=== PATIENT | female | born 1960 | race Caucasian/White ===

== ENCOUNTER 2023-12-04 14:46 | Emergency (ER) | payer BC, SELFPAY ==
[2023-12-04 14:47] VITALS: BP 183/90
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
== END 2023-12-04 17:30 | disposition home or self-care (01) ==
LOC: EMR 14:46
PROVIDERS: EMERGENCY PHYSICIAN Emergency Medicine; FAMILY PHYSICIAN Internal Medicine
DX: S09.90XA Unspecified injury of head, initial encounter (principal); M25.562 Pain in left knee; M25.552 Pain in left hip; M79.642 Pain in left hand; V28.01XA Electric (assisted) bicycle driver injured in noncollision transport accident in nontraffic accident, initial encounter; K21.9 Gastro-esophageal reflux disease without esophagitis; R03.0 Elevated blood-pressure reading, without diagnosis of hypertension; M54.2 Cervicalgia
CPT/HCPCS: 99285; 70450; 72125; 73130; 73502; 73564

== ENCOUNTER 2024-07-20 18:17 | Emergency (ER) | payer BC, SELFPAY ==
[2024-07-20 18:22] VITALS: BP 189/94
--- NOTE | 2024-07-20 19:41 | ED.GENMED ---
History of Present Illness
General
Chief Complaint: Rabies
Source: patient
Exam Limitations: none
Time Seen by Provider: 07/20/24 18:28
Nursing documentation reviewed up to this point in time: agreed with
History of Present Illness
History of Present Illness:
Patient to ED for rabies booster. States her cat found a bat in the house. She is unsure if she was scratched by cat or bat. Scratch to left shinHas had full rabies series in the past. Last booster was 2016. Bat was released outside. Brought
self to ED for booster and requests rabies titer.
Past History
Past History
ED Past Medical History: None
ED Past Surgical History: None
Patient has exhibited threatening behavior?: No
Social History
Tobacco: Non-smoker
Personal:
Living: with family
Employment: Employed
Review of Systems
Review of Systems
Allergies reviewed?: Yes
All Other Systems: ROS reviewed and negative except as documented in HPI and ROS
Constitutional: Reports no symptoms
Musculoskeletal: Reports no symptoms
Skin: Reports other (scratch on left martinez)
Neurological: Reports no symptoms
Psychiatric: Reports no symptoms
Phy Exam
General Physical Exam
General Presentation: well appearing and no apparent distress
General age: appears stated age
General Skin: warm and dry
General Habitus: normal
General Mental: alert
Musculoskeletal Exam
Musculoskeletal Exam: full ROM and neuro vasc intact
Skin Exam
Skin Exam: normal color, warm/dry, no rash and other (3cm superficial scratch to right martinez. No rednss swelling or discharge.)
Psychiatric Exam
Psychiatric Exam: normal mood/affect
Course
Orders/Labs/Results
Orders:
Orders
07/20/24 18:40
Rabies Vaccine ([facility])/Pf [Rabavert Rabies Vacc W-Diluent] 2.5 unit IM .ONCE ONE
07/20/24 19:32
Rabies Antibody ([facility]) [S] Urgent
Vital Signs
Initial and Last Documented VS:
Initial Vital Signs
Temp Pulse Resp BP Pulse Ox
98.2 F 86 20 189/94 98
07/20/24 18:22 07/20/24 18:22 07/20/24 18:22 07/20/24 18:22 07/20/24 18:22
Last Documented Vital Signs
Temp Pulse Resp BP Pulse Ox
98.2 F 86 20 189/94 98
07/20/24 18:22 07/20/24 18:22 07/20/24 18:22 07/20/24 18:22 07/20/24 18:22
*Critical Care Note
Total Time (30-74mins, 75-104mins- exclusive of procedures): Not Applicable
Update Note
Update Note:
Patient to ED for rabies booster after receiving scratch to left martinez by bat vs her cat. Bat was released after capture. Patient has had full rabies series in past. Last booster was 2016. Recommend 2 vaccine booster. Will follow up at infusion
center on tuesday for 2nd booster.
ED Attending Note
-
Portions of this chart may have been created with voice recognition software.� Occasional wrong word or��sound alike� substitutions may have occurred due to the inherent limitations of voice recognition software.
Discharge Plan
Departure
Patient Disposition: Home (Routine Discharge)
Date of Disposition: 07/20/24
Time of Disposition: 18:42
Patient with high blood pressure during this ER visit?: No
Condition: Good
Covid-19: Not Applicable
Discharge Problem:
Rabies exposure
Instructions: Rabies Vaccine
Prescriptions:
New
rabies vacc,human diploid (PF) 2.5 unit recon soln
2.5 unit IM ONCE Qty: 1 0RF
No Action
Artichoke
500 mg PO DAILY
vitamin B complex [B-Complex] 1 TAB tablet
1 tab PO DAILY
multivitamin 1 EACH capsule
1 ea PO DAILY
cholecalciferol (vitamin D3) [Vitamin D3] 1,000 UNIT tablet
1,000 unit sublingual DAILY
Doxycycline Hyclate 100 MG Capsule
100 mg PO BID Qty: 20 0RF
Activity Restrictions/Additional Instructions:
Follow up with the infusion center on Tuesday for your second rabies vaccine. You do not need any further doses after 2nd dose.
Interventions
Interventions:
*General Assessment Last Done: 07/20/24 18:22
Discharge Date and Time
Print Language: CHADIAN
[2024-07-20] MEDS: RABAVERT RABIES VACC W-DILUENT 2.5 UNIT IM (19:52)
== END 2024-07-20 20:29 | disposition home or self-care (01) ==
LOC: EMR 18:17
PROVIDERS: Nurse Practitioner; EMERGENCY PHYSICIAN Student in an Organized Health Care Education/Training Program; FAMILY PHYSICIAN Internal Medicine
DX: Z20.3 Contact with and (suspected) exposure to rabies (principal); Z23 Encounter for immunization
CPT/HCPCS: 99281; 90471; 86382; 90675; 99284

== ENCOUNTER 2024-07-23 15:00 | Outpatient (RCR) | payer BC, SELFPAY ==
[2024-07-23 15:06] VITALS: BP 148/82
[2024-07-23] MEDS: RABAVERT RABIES VACC W-DILUENT 2.5 UNIT IM (15:10)
== END 2024-07-24 08:29 | disposition home or self-care (01) ==
LOC: OID 15:00
PROVIDERS: ATTENDING PHYSICIAN Nurse Practitioner
DX: Z20.3 Contact with and (suspected) exposure to rabies (principal); Z23 Encounter for immunization
CPT/HCPCS: 90471; 90675